=== PATIENT | female | born 1980 | race Caucasian/White ===

== ENCOUNTER 2023-04-10 22:01 | Emergency (ER) | payer BC ==
[~2023-04-10] VITALS: Ht 170.2 cm; Wt 108.9 kg
--- OUTSIDE RECORDS SUMMARY | ~2023-04-10 | XMS | Continuity of Care Document ---
Demographics + + + | Address | [address] | | | [place] [address] | + + + | Preferred Language | Unknown | + + + | Marital Status | | + + + | Latter Day Affiliation | Unknown | + + + | Race | White | + + + | Ethnic Group | Unknown | + + + Author + + + | Author | [facility] | + + + | Organization | [facility] | + + + | Address | [address] | | | [place] [address] | + + + | Phone | | + + + Care Team Providers + + + + | Care Six Pack Loader Operator Name | Role | Phone | + + + + Unavailable | Unavailable | + + + + Allergies No information. Encounters No information. Functional Status No information. Immunizations No information. Medications No information. Problems + + + + | date | description | facility | + + + + | 2023-02-26 14:34 | [facility] | + + + + | 2023-02-26 14:34 | [facility] | [facility] | + + + + Procedures No information. Results/Labs No information. Social History No information. Vital Signs No information."
[~2023-04-10 22:01] MED LIST: BUPROPION XL300 MG PO; FLUTICASONE PRO16 GM NAS; LISINOPRIL10 MG PO; OMEPRAZOLE20 MG PO; PSEUDOEPHEDRINE30 MG; SUMATRIPTAN SU100 MG PO
[2023-04-10] MEDS ORDERED: HYDROCODON-ACE1 EA10 PO (22:38)
[2023-04-10 23:03] VITALS: BP 147/100
== END 2023-04-10 22:48 | disposition home or self-care (01) ==
LOC: ED 22:01
DX: S82.432A Displaced oblique fracture of shaft of left fibula, initial encounter for closed fracture (principal); W18.42XA Slipping, tripping and stumbling without falling due to stepping into hole or opening, initial encounter; Z91.040 Latex allergy status; Z79.899 Other long term (current) drug therapy
CPT/HCPCS: 73610; A9270

== ENCOUNTER 2023-10-31 11:05 | Day surgery (SDC) | payer BC ==
[~2023-10-31] VITALS: Ht 170.2 cm; Wt 104.5 kg
--- NOTE | ~2023-10-31 | OR ---
[facility] [address] [place], [place] [address] Draft DATE OF OPERATION: 10/31/2023 SURGEON: Narinder Traore MD PREOPERATIVE DIAGNOSIS: Persistent episodic rectal bleeding. POSTOPERATIVE DIAGNOSIS: Hypervascular polyp at 20 cm (excised) small polyp of left colon, nonbleeding excised and internal hemorrhoidal change. PROCEDURE: Total colonoscopy to cecum with hot snare polypectomy x1 and cold morcellation polypectomy x1. ANESTHESIA: Intravenous sedation; fentanyl 200 mcg and Versed 16 mg. 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 She has had childbirth x3 and had significant manifestations from COVID infection x3, which included diarrhea in all cases. She does not currently have diarrhea or constipation, however. Her rectal bleeding is episodic but persistent and on the basis of these findings and her age and no prior evaluation of the colon, colonoscopy was recommended. The risk of bleeding, infection, and perforation related to colonoscopy was reviewed with her. She understands and wished to proceed. FINDINGS: The prep was adequate. Complete colonoscopy was undertaken to the cecum without question. She had a small polyp of the left colon which was excised with cold morcellation technique and hypervascular polyp that was pedunculated at approximately 20 cm. It was excised as well. There were internal hemorrhoidal changes, though they were not profound. DESCRIPTION OF PROCEDURE: The patient was brought to the endoscopy suite and placed in the lateral decubitus position, given intravenous sedation to the point of slurred speech and nystagmus. A fair amount of intravenous sedation was required perhaps related to her underlying use daily of buspirone and fluoxetine. In any case, an Olympus video colonoscope was passed PATIENT NAME: SANDRA LOO OPERATIVE REPORT DATE OF : 84 REPORT #: [id number] PHYSICIAN: NARINDER TRAORE MD PCP: MARGARITO RUBIN PA-C REPORT IS CONFIDENTIAL AND NOT TO BE RELEASED WITHOUT AUTHORIZATION [facility] [address] [place], [place] [address] Draft in the rectum and manipulated throughout the colon ultimately intubating the cecum itself. The ileocecal valve and appendiceal orifice were well identified. Irrigation was undertaken as needed. The scope was carefully withdrawn and examination showed no sign of abnormality of the proximal descending colon. A small sessile polyp was noted, this was excised with cold morcellation technique. Further withdrawal later demonstrated a relatively larger pedunculated hypervascular polyp at 20 cm, this was excised with hot snare polypectomy technique and retrieved with a Childers net. After offloading the specimen, the scope was reintroduced and evaluation of the excision site showed good hemostasis. No sign of complication. The scope was then further withdrawn and ultimately in the rectum retroflexed view undertaken confirming internal hemorrhoidal changes. There was no sign of active bleeding or thrombosis. The scope was straightened, withdrawn and removed. The patient was taken to recovery room in good condition. CONCLUDING DIAGNOSIS: Bleeding either from the hypervascular polyp of the sigmoid or hemorrhoids. PLAN: Recommend high-fiber diet including possible use of a fiber supplement such as Metamucil or Citrucel powder preferred. Repeat colonoscopy in three years. If she should have persistent rectal bleeding, I would have her consider hemorrhoidal banding in the office setting. She will return to the ongoing care of TARSHA Kaplan in the meantime otherwise. MD RAFFI Ball/CASSY /[id number] cc: TARSHA Kaplan Copies: ~ PATIENT NAME: SANDRA LOO OPERATIVE REPORT DATE OF : 84 REPORT #: [id number] PHYSICIAN: NARINDER TRAORE MD PCP: MARGARITO RUBIN PA-C REPORT IS CONFIDENTIAL AND NOT TO BE RELEASED WITHOUT AUTHORIZATION
[~2023-10-31 11:05] MED LIST changes: +BUSPIRONE HCL7.5 MG PO; +FLUOXETINE HCL20 MG PO; +HYDROCODON-ACE1 EA10 PO; +PROPRANOLOL HCL20 MG PO
[2023-10-31 11:31] VITALS: BP 144/96
[2023-10-31] MEDS ORDERED: CETIRIZINE HCL10 MG PO (11:31)
--- NOTE | 2023-10-31 14:19 | NUR ---
10/31/23 1419 Libby Sam PATIENT ARRIVES IN PACU AWAKE AND TALKING WITH RN. SHE VERBALIZES NEEDING TO "POOP." PATIENT ENCOURAGED TO PASS GAS. SHE DOES REPORT "ABDOMINAL CRAMPS," BUT DOES NOT RATE PAIN.
[2023-10-31 14:31] VITALS: BP 114/90
--- NOTE | 2023-11-04 16:31 | PATH ---
[facility] [address] [address] [place] [address] Signed SPECIMEN(S): A DESCENDING POLYP SPECIMEN(S): B COLON POLYP AT 20 CM SPECIMEN SOURCE: A. DESCENDING POLYP B. COLON POLYP AT 20 CM CLINICAL HISTORY: History rectal bleeding FINAL PATHOLOGIC DIAGNOSIS: A. Descending polyp: - Tubular adenoma (two fragments). B. Colon polyp at 20 cm: - Tubular adenoma. JVR:nikia MICROSCOPIC EXAMINATION: Histologic sections of all submitted blocks are examined by light microscopy. These findings, together with the gross examination, support the pathologic diagnosis. GROSS DESCRIPTION: A. The specimen, labeled and designated "Rufino, descending polyp," is received in formalin and consists of three orellana soft tissue fragments, ranging from 0.1-0.3 cm. Entirely submitted in (A1). B. The specimen, labeled and designated "Rufino, colon polyp at 20 cm," is received in formalin and consists of a bosselated polyp of brown-orellana soft tissue (1.0 x 1.0 x 0.8 cm). The resection margin is inked blue, and the tissue is trisected to reveal orellana to red-brown soft cut surfaces. Specimen is submitted entirely in cassette (B1). VB (under the direct supervision of a pathologist) The Gross Description was prepared using a voice recognition system. The report was reviewed for accuracy; however, sound-alike word errors, addition and/or deletions may occur. If there is any question about this report, please contact Client Services. PERFORMING LABORATORY: Technical component was performed by [employer], [address] [place] [id number] (CLIA# [id number]). Professional interpretation was performed by [facility] - [facility], [address] PATIENT NAME: SANDRA LOO PATHOLOGY DATE OF : 84 REPORT #: [id number] PHYSICIAN: [facility] PCP: MARGARITO RUBIN PA-C REPORT IS CONFIDENTIAL AND NOT TO BE RELEASED WITHOUT AUTHORIZATION [facility] [address] [place], [place] [address], [place] [address] (CLIA#: [id number]). Diagnostician: Derrek Rivero MD Pathologist Electronically Signed 11/04/2023 Copies: ~ PATIENT NAME: SANDRA LOO PATHOLOGY DATE OF : 84 REPORT #: [id number] PHYSICIAN: [facility] PCP: MARGARITO RUBIN PA-C REPORT IS CONFIDENTIAL AND NOT TO BE RELEASED WITHOUT AUTHORIZATION
== END 2023-10-31 14:40 | disposition home or self-care (01) ==
LOC: DS 11:05 → OPS 11:05 → DS 11:09 → OPS 12:15
PROVIDERS: ATTEND Surgery
PROC: 0DBM8ZX Excision of Descending Colon, Via Natural or Artificial Opening Endoscopic, Diagnostic (ICD-10-PCS; 2023-10-31)
PROC: 0DBG8ZZ Excision of Left Large Intestine, Via Natural or Artificial Opening Endoscopic (ICD-10-PCS; principal; 2023-10-31 12:15)
DX: K62.5 Hemorrhage of anus and rectum (principal); D12.4 Benign neoplasm of descending colon; D12.6 Benign neoplasm of colon, unspecified; K64.8 Other hemorrhoids; F41.9 Anxiety disorder, unspecified; I10 Essential (primary) hypertension; Z86.16 Personal history of COVID-19
CPT/HCPCS: 84703; 99153; G0500; J2250; J3010; J7121